=== PATIENT | female | born 1995 | race African-American/Black ===

== ENCOUNTER 2016-12-26 20:40 | Emergency (ER) | payer BC ==
[~2016-12-26] VITALS: Ht 152.4 cm; Wt 46.5 kg
[2016-12-26 21:41] VITALS: Ht 152.4 cm; Wt 46.5 kg
[2016-12-27] MEDS ORDERED: IBUP400T22 PO (00:19)
--- NOTE | 2016-12-27 00:25 | ERD ---
ER Documentation Chief Complaint Date/Time DATE: 12/27/16 TIME: 00:23 Chief Complaint headache; tingling on fingers at work today HPI 21-year-old female with history of headaches presents to the emergency department complaining of a moderate global headache associated with nausea since today. Patient states the pain was more severe earlier but now the pain subsided after taking Excedrin and ibuprofen. Patient denies any neuro deficits. She states that she has numbness and tingling in her extremities for the past year that intermittently. She denies any other neuro deficits ROS All systems reviewed and are negative except as per history of present illness. Medications Home Meds Active Scripts Ibuprofen* (Motrin*) 400 Mg Tab, 400 MG PO Q6H Y for PAIN AND OR ELEVATED TEMP, #30 TAB Prov:BRIANA COKER PA-C 12/27/16 Allergies Allergies: Coded Allergies: No Known Allergy (Unverified , 12/26/16) PMhx/Soc Medical and Surgical Hx: pt denies Medical Hx, pt denies Surgical Hx Hx Alcohol Use: No Hx Substance Use: No Hx Tobacco Use: No Smoking Status: Never smoker Physical Exam Vitals Vital Signs Date Time Temp Pulse Resp B/P Pulse Ox O2 Delivery O2 Flow Rate FiO2 12/26/16 21:41 98.3 60 20 150/93 100 Physical Exam GENERAL: well-developed/well-nourished, in no apparent distress, non-toxic appearing HENT: NC/AT, bilateral tympanic membrane is normal with good cone of light, nares patent, oropharynx clear without exudates EYES: Conjunctiva normal, PERRLA, EOMI, no nystagmus noted NECK: Supple, no lymphadenopathy PULM: CTA bilaterally, no rales, rhonchi, or wheezing heard CV: Normal S1S2, RRR, good capillary refill GI: Soft, non-distended, normal bowel sounds, non-tender BACK: No midline tenderness, no masses, No CVAT EXT: No clubbing, cyanosis, or edema NEURO: Alert and orientated to person, place, and time. CN II-IIX intact. Gait and coordination were normal. Hand clutch specialist strength were equal and within normal limits SKIN: Intact, normal turgor PSYCH: Normal mood and mentation, patient denied SI Procedures/MDM 21-year-old female headache presents to the emergency department with headache since today. . My differential diagnoses include tension, migraine, and cluster headache, overuse medication headache, subarachnoid hemorrhage, meningitis, stroke. . Neurology exam was normal and I don't recommend a CT scan at this time hemodynamically stable and neurovascularly intact. Prescription ibuprofen were given. Discussed to follow up with a primary care physician in the next couple days. Return to the ER if condition worsens or not improving as expected. Patient agreed and understood this plan. Departure Diagnosis: Primary Impression: Headache Condition: Stable Patient Instructions: Self-Care for Headaches Additional Instructions: FOLLOW UP WITH YOUR PRIMARY CARE PHYSICIAN TOMORROW.Return to this facility if you are not improving as expected. Take all medicines as directed. BRIANA COKER PA-C Dec 27, 2016 00:25
== END 2016-12-27 00:31 | disposition home or self-care (01) ==
LOC: FTE 20:40
DX: R51 Headache (principal)
CPT/HCPCS: 99283